=== PATIENT | male | born 1980 | race African-American/Black ===

== ENCOUNTER 2022-06-21 14:37 | Emergency (ER) | payer OTHER, SELFPAY ==
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
[2022-06-21 14:58] VITALS: BP 116/81; PULSE 104; O2SAT 98
[2022-06-21 15:38] VITALS: BP 111/74; PULSE 100; RESP 20; TEMP 37.4; O2SAT 98; BMI 27.4
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
[2022-06-21] MEDS: oxyCODONE HCl Immed Release 5 MG TABLET 10 MG PO (22:33)
[2022-06-21] MEDS: Acetaminophen 325 MG TABLET 975 MG PO (22:33)
[2022-06-21 23:41] VITALS: BP 113/85; PULSE 88; RESP 18; TEMP 37.1; O2SAT 98
[2022-06-21 23:56] LABS: COVID-19 Test Negative (Negative)
--- NOTE | 2022-06-21 23:56 | PC.NURSE ---
Call out to [facility] @[id number] regarding transfer to [facility] will be here @ 1101 for transport
== END 2022-06-22 01:51 | disposition short-term general hospital (02) ==
PROVIDERS: Nurse Practitioner Family; Emergency Provider Internal Medicine
DX: S02.652A Fracture of angle of left mandible, initial encounter for closed fracture (principal); S02.69XA Fracture of mandible of other specified site, initial encounter for closed fracture; Y04.2XXA Assault by strike against or bumped into by another person, initial encounter; Y93.9 Activity, unspecified; Y92.9 Unspecified place or not applicable; Y99.9 Unspecified external cause status; Z20.822 Contact with and (suspected) exposure to COVID-19
CPT/HCPCS: 70450; 70486; 72125; 87635; 99285